=== PATIENT | female | born 1990 | race Caucasian/White ===

== ENCOUNTER 2021-05-08 04:46 | Inpatient (IN) | payer OTHER ==
[~2021-05-08] VITALS: Ht 160 cm; Wt 100.6 kg
[2021-05-08] VITALS (55 sets, daily range): BP systolic 68–159; BP diastolic 52–96
[2021-05-08] MEDS ORDERED: D5 LR IV SOLUTION 1,000 ML IV ONE (06:30)
--- NOTE | 2021-05-08 06:54 | History & Physical-OB ---
OB - Chief Complaint & HPI Date/Time Date of Admission: Date of Admission: May 08, 2021 at 06:00 Date seen by a Provider: May 08, 2021 Time Seen by a Provider: 06:45 Chief Complaint/History OB-Reason for Admission/Chief: Induction of Labor Hx : 3 Hx Para: 2 Expected Date of Delivery: May 13, 2021 Gestational Age in Weeks: 39 Gestational Age in Days: 2 Admission Nurse Assessment Rev: Yes History of Labs GBS negative Allergies and Home Medications Allergies Coded Allergies: No Known Drug Allergies (Unverified , 05/08/21) Patient Home Medication List Home Medication List Reviewed: Yes OB - History Hx of Present Care: Yes Ultrasounds: Normal mid trimester US Obstetrical Complications: None Medical Complications: None Patient Past Medical History No chronic medical problems OB - Admission Exam Physical Exam HEENT: Moist Membranes Heart: Rhythm Normal Lungs: Clear Abdomen: Gravid Cervical Dilatation: 1cm Effacement: 50% Station: -3 Membranes: Intact Heart Rate: 140's Accelerations: Accelerations Present Retirement Variability: Average (6-25) Contractions on Admission: >10 Minutes Apart Intensity: Mild Manzano Scoring Tool (Modified) Dilation (cm): 1-2cm (1) Effacement (%): 31-51% (1) Descent/Station: -3 (0) Cervix Consistency: Medium(1) Cervix Position: Middle/Mid-Position (1) Add 1 point for: Each previous vaginal delivery (1) Manzano Score: 6 OB - Assessment/Plan/Diagnosis Assessment Assessment: induction of labor Admission Dx 1. IUP at 39 weeks. Admission Status: Inpatient Order (span 2 midnights) Reason for Inpatient Admission: Induction of labor Plan Plan: Induction Induction Method: AROM Other Plan -pitocin as needed YANE BAZAN MD May 08, 2021 06:54
[2021-05-08] MEDS ORDERED: BUTORPHANOL INJ 2 MG/ML (STADOL) VIAL IV PRN (07:00)
[2021-05-08] MEDS ORDERED: OXYTOCIN PRE-MIX DRIP 500 ML IV SCH ×2 (07:00→19:15)
[2021-05-08] MEDS: D5 LR IV SOLUTION 1,000 ML IV SCH ×2 (07:30→14:30)
[2021-05-08 09:36] LABS: BASOPHILS % (AUTO) 0 % (0-10); EOSINOPHILS # (AUTO) 0.1 10^3/uL (0.0-0.3); EOSINOPHILS % (AUTO) 1 % (0-10); HEMATOCRIT 36 % (35-52); HEMOGLOBIN 11.8 g/dL (11.5-16.0); LYMPHOCYTES # (AUTO) 2.3 10^3/uL (1.0-4.0); LYMPHOCYTES % (AUTO) 19 % (12-44); MEAN CORPUSCULAR HEMOGLOBIN 27 pg (25-34); MEAN CORPUSCULAR HGB CONC 33 g/dL (32-36); MEAN CORPUSCULAR VOLUME 84 fL (80-99); MEAN PLATELET VOLUME 10.6 fL (9.0-12.2); MONOCYTES # (AUTO) 0.6 10^3/uL (0.0-1.0); MONOCYTES % (AUTO) 5 % (0-12); NEUTROPHILS # (AUTO) 8.9 10^3/uL (1.8-7.8); NEUTROPHILS % (AUTO) 74 % (42-75); PLATELET COUNT 171 10^3/uL (130-400)
[2021-05-08] MEDS ORDERED: CATHETER FLUSH 10 ML SYR IV SCH ×2 (14:00→22:00)
[2021-05-08] MEDS ORDERED: NALOXONE 0.4 MG/ML 1 ML (NARCAN) VIAL ONE (18:19)
[2021-05-08] MEDS ORDERED: MEPIVACAINE (CARBOCAINE) 2% 50 ML VIAL ONE (18:21)
--- NOTE | 2021-05-08 19:01 | OB Labor & Delivery Record ---
L&D History Date of Service Date of Service: May 08, 2021 History Expected Date of Delivery: May 13, 2021 Gestational Age in Weeks: 39 Hx : 3 Hx Para: 3 Complications Events: Routine care Operative Indications (Cesarea: N/A-Vaginal Delivery Intrapartal Events: None L&D Stage1 Stage One Onset of Labor - Date: May 08, 2021 Onset of Labor - Time: 06:36 Monitors and Tracing Monitor Mode: Internal Heart Rate: 140 Monitor Accelerations: Uniform Monitor Decelerations: Variable Station: -1 Chop Saw Operator Variability: Average (6-10) Short Term Variability: Present Presentation: Vertex Vital Signs VS - Last 72 Hours, by Label 05/08/21 05/08/21 05/08/21 05/08/21 07:20 07:30 07:45 08:00 Temp 36.6 Pulse 87 88 77 77 Resp 18 18 18 18 B/P (MAP) 121/72 (88) 120/76 (91) 113/71 (85) 113/71 (85) Pulse Ox 98 98 O2 Delivery Room Air Room Air Room Air Room Air 05/08/21 05/08/21 05/08/21 05/08/21 08:15 08:30 08:45 09:00 Pulse 73 86 93 Resp 18 18 18 18 B/P (MAP) 125/60 (81) 120/71 (87) 112/66 (81) 114/72 (86) O2 Delivery Room Air Room Air Room Air Room Air 05/08/21 05/08/21 05/08/21 05/08/21 09:15 09:30 09:45 10:00 Pulse 76 76 71 85 Resp 18 18 18 18 B/P (MAP) 113/71 (85) 116/76 (89) 68/66 (67) 119/75 (90) O2 Delivery Room Air Room Air Room Air Room Air 05/08/21 05/08/21 05/08/21 05/08/21 10:15 10:30 10:45 11:00 Temp 36.5 Pulse 75 75 83 69 Resp 18 18 18 18 B/P (MAP) 117/66 (83) 114/69 (84) 108/65 (79) 118/67 (84) O2 Delivery Room Air Room Air Room Air Room Air 12/905/08/21 05/08/21 05/08/21 11:15 11:30 11:45 11:52 Temp 36.4 Pulse 82 82 76 Resp 18 18 18 B/P (MAP) 119/68 (85) 95/52 (66) 98/54 (69) O2 Delivery Room Air Room Air Room Air 05/08/21 05/08/21 05/08/21 05/08/21 12:00 12:15 12:30 12:45 Pulse 74 81 62 78 Resp 18 18 18 18 B/P (MAP) 101/55 (70) 107/59 (75) 112/64 (80) 121/64 (83) O2 Delivery Room Air Room Air Room Air Room Air 05/08/21 05/08/21 05/08/21 05/08/21 13:00 13:15 13:30 13:45 Pulse 75 62 69 Resp 18 18 18 18 B/P (MAP) 119/75 (90) 115/65 (82) 130/70 (90) O2 Delivery Room Air Room Air Room Air Room Air 05/08/21 05/08/21 05/08/21 05/08/21 14:00 14:15 14:30 14:45 Pulse 69 83 83 89 Resp 18 18 18 18 B/P (MAP) 123/67 (85) 123/71 (88) 123/71 (88) 120/64 (82) O2 Delivery Room Air Room Air Room Air Room Air 05/08/21 05/08/21 05/08/21 05/08/21 15:00 15:15 15:30 15:45 Pulse 75 75 84 75 Resp 18 18 18 18 B/P (MAP) 120/70 (87) 129/78 (95) 113/73 (86) 138/66 (90) O2 Delivery Room Air Room Air Room Air Room Air 05/08/21 05/08/21 05/08/21 05/08/21 16:00 16:15 16:30 16:45 Temp 36.8 Pulse 74 73 81 82 Resp 18 18 18 18 B/P (MAP) 128/69 (88) 135/76 (95) 140/68 (92) 139/69 (92) O2 Delivery Room Air Room Air Room Air Room Air 05/08/21 05/08/21 05/08/21 05/08/21 17:00 17:15 17:30 17:45 Pulse 75 68 77 71 Resp 18 18 18 18 B/P (MAP) 129/68 (88) 143/69 (93) 133/77 (95) 159/70 (99) O2 Delivery Room Air Room Air Room Air Room Air 05/08/21 18:00 Pulse 76 Resp 18 B/P (MAP) 139/65 (89) O2 Delivery Room Air Signs of Distress by FHT Signs of Distress no Rupture of Membranes Spontaneous Ruture of Membrane: No Amniotic Membrane Rupture Time: 0636 Amniotic Membrane Fluid Desc.: Clear Vaginal Bleeding Description: None Induction/Anesthesia Medications Stadol x 1 L&D Stage2 Stage Two Stage II Date: May 08, 2021 Stage II Time: 18:34 Monitors and Tracing Monitor Mode: Internal Heart Rate: 140 Monitor Accelerations: Uniform Monitor Decelerations: Variable Chop Saw Operator Variability: Average (6-10) Position: Left Occiput Anterior Presentation: Vertex Signs of Distress by FHT Signs of Distress no Cord Descript/Complications Cord Vessel Description: 3 Vessels Delivery Type Infant Delivery Method: Spontaneous Vaginal Anterior Shoulder: Left Episiotomy/Perineal Laceration Laceraction(s)/Extensions: No Episiotomy Description: None Condition of Delivery 1 minute Comment: 8 5 minute Comment: 9 Condition of Condition of Infant: Living Exam: No Observed Abnormalities Resuscitation Resuscitation: N/A - Spontaneous Resp L&D Stage3 Stage Three Stage III Date: May 08, 2021 Stage III Time: 18:40 Pictocin Pitocin Administration mu/min: 30 Pitocin ml/hr: 30 Pitocin Administration Comment: pitocin increased Placenta Delivery Placenta Delivery: Spontaneous Delivery Summary Summary Estimated blood loss (mL): 200 Condition of Delivery Examined: Cervix Examined Post Hemorrhage: Yes Intervention Required None required YANE BAZAN MD May 08, 2021 19:01
[2021-05-08] MEDS ORDERED: NALOXONE 0.4 MG/ML 1 ML (NARCAN) VIAL IV PRN (19:15)
[2021-05-08] MEDS ORDERED: WITCH HAZEL(TUCKS) 40 EA JAR TOP PRN (19:15)
[2021-05-08] MEDS ORDERED: BENZOCAINE/MENTHOL (DERMOPLAST) 56 ML CAN TP PRN (19:15)
[2021-05-08] MEDS ORDERED: MEASLES,MUMPS,RUBELLA 1 EA INJ SQ ONE (19:15)
[2021-05-08] MEDS ORDERED: TETANUS,DIPTH,PERTUSS P/F (BOOSTRIX) 0.5 ML VIAL IM ONE (19:15)
[2021-05-08] MEDS ORDERED: ACETAMINOPHEN 500 MG TAB (TYLENOL) ONE (19:51)
[2021-05-08] MEDS ORDERED: IBUPROFEN 600 MG (MOTRIN) TAB PO ONE (19:51)
[2021-05-08] MEDS: IBUPROFEN 600 MG (MOTRIN) TAB PO SCH (19:52)
[2021-05-08] MEDS: ACETAMINOPHEN 500 MG TAB (TYLENOL) PO SCH (19:53)
[2021-05-09 01:28] VITALS: BP 98/52
[2021-05-09] MEDS: IBUPROFEN 600 MG (MOTRIN) TAB PO SCH ×3 (01:28→18:00)
[2021-05-09 04:18] VITALS: BP 100/56
[2021-05-09] MEDS: ACETAMINOPHEN 500 MG TAB (TYLENOL) PO SCH ×3 (04:18→18:00)
[2021-05-09 06:55] LABS: BASOPHILS % (AUTO) 0 % (0-10); EOSINOPHILS % (AUTO) 0 % (0-10); HEMATOCRIT 34 % (35-52); HEMOGLOBIN 11.1 g/dL (11.5-16.0); LYMPHOCYTES # (AUTO) 2.9 10^3/uL (1.0-4.0); LYMPHOCYTES % (AUTO) 16 % (12-44); MEAN CORPUSCULAR HEMOGLOBIN 28 pg (25-34); MEAN CORPUSCULAR HGB CONC 33 g/dL (32-36); MEAN CORPUSCULAR VOLUME 85 fL (80-99); MEAN PLATELET VOLUME 10.9 fL (9.0-12.2); MONOCYTES # (AUTO) 0.9 10^3/uL (0.0-1.0); MONOCYTES % (AUTO) 5 % (0-12); NEUTROPHILS # (AUTO) 13.9 10^3/uL (1.8-7.8); NEUTROPHILS % (AUTO) 78 % (42-75); PLATELET COUNT 183 10^3/uL (130-400); WHITE BLOOD COUNT 17.9 10^3/uL (4.3-11.0)
[2021-05-09] MEDS: DOCUSATE SODIUM 100 MG (COLACE) CAP PO SCH ×2 (07:14→10:39)
--- NOTE | 2021-05-09 07:31 | Discharge Inst-Women's Service ---
Discharge Inst-Women's Serv Depart Medication/Instructions New, Converted or Re-Newed RX: Other Instructions May take [id number] ibuprofen 200 mg tablets, intake 2 or 3 every 6 hours if needed for cramps. Problems Reviewed?: Yes Consults/Follow Up Additional Follow Up: Yes (with Dr. Bazan at [facility] in 6 weeks) Activity Activity: Activity as Tolerated Driving Instructions: No Driving for 1 Week Nothing Inside Vagina: No [place] (6 weeks) Diet Discharge Diet: Regular Diet Return to The Hospital For: as below Symptoms to Report to : Bleeding Excessive, Fever Over 101 Degrees F, Vagin al Discharge Foul For Any Problems or Questions: Contact Your Physician YANE BAZAN MD May 09, 2021 07:31
[2021-05-09 17:55] VITALS: BP 129/78
== END 2021-05-09 20:25 | disposition home or self-care (01) | DRG 807 ==
LOC: LDRP 06:00 → WS 22:00
PROVIDERS: ADMIT Family Medicine; ATTEND Family Medicine
PROC: 10E0XZZ Delivery of Products of Conception, External Approach (ICD-10-PCS; principal; 2021-05-08)
PROC: 10907ZC Drainage of Amniotic Fluid, Therapeutic from Products of Conception, Via Natural or Artificial Opening (ICD-10-PCS; 2021-05-08)
PROC: 3E033VJ Introduction of Other Hormone into Peripheral Vein, Percutaneous Approach (ICD-10-PCS; 2021-05-08)
DX: O80 Encounter for full-term uncomplicated delivery (principal); Z37.0 Single live birth; Z3A.39 39 weeks gestation of pregnancy
CPT/HCPCS: 36415; 85025; 86850; 86900; 86901